=== PATIENT | male | born 1995 | race Two or more races ===

== ENCOUNTER 2022-05-28 19:04 | Emergency (ER) | payer MEDICAID, OTHER ==
[~2022-05-28] VITALS: Ht 177.8 cm; Wt 75.0 kg
[2022-05-28] MEDS ORDERED: EPINEPHrine HCL 1 MG/10 ML SYRG IV ONE (19:08)
== END 2022-05-28 22:04 ==
LOC: ER 19:07 → EDBD 19:07 → ER 22:04
DX: I46.9 Cardiac arrest, cause unspecified (principal)
CPT/HCPCS: 92950; 99285; J0171